=== PATIENT | male | born 1940 | race Caucasian/White ===

== ENCOUNTER 2016-08-22 07:21 | Day surgery (SDC) | payer MEDICARE, MEDICAID | END 2016-08-22 14:14 | disposition short-term general hospital (02) | LOC: SURGOP 07:21 | PROC: 0YUA0JZ Supplement Bilateral Inguinal Region with Synthetic Substitute, Open Approach (ICD-10-PCS; principal; 2016-08-22) | DX: K40.00 Bilateral inguinal hernia, with obstruction, without gangrene, not specified as recurrent (principal); J44.9 Chronic obstructive pulmonary disease, unspecified; F17.200 Nicotine dependence, unspecified, uncomplicated; Z99.81 Dependence on supplemental oxygen; Z87.09 Personal history of other diseases of the respiratory system; R32 Unspecified urinary incontinence | CPT/HCPCS: C1781; J0690; J2250; J2405; J3010 ==

== ENCOUNTER → 2016-08-29 | Outpatient (CLI) | payer MEDICARE, MEDICAID | END | disposition short-term general hospital (02) | LOC: CLSURG 08:24 | DX: Z48.815 Encounter for surgical aftercare following surgery on the digestive system (principal); K40.00 Bilateral inguinal hernia, with obstruction, without gangrene, not specified as recurrent ==

== ENCOUNTER → 2016-09-19 | Outpatient (CLI) | payer MEDICARE, MEDICAID | END | disposition short-term general hospital (02) | LOC: CLSURG 08:26 | DX: Z48.815 Encounter for surgical aftercare following surgery on the digestive system (principal); Z98.890 Other specified postprocedural states ==